=== PATIENT | female | born 1985 | race Caucasian/White ===

== ENCOUNTER 2016-10-29 19:26 | Emergency (ER) | payer SELFPAY ==
[2016-10-29 20:07] VITALS: BP 130/79
[2016-10-29] MEDS ORDERED: Lidocaine 1% MPF* 2 ML VIAL ONE (20:27)
[2016-10-29] MEDS ORDERED: Ibuprofen TAB* 600 MG PO ONE (20:51)
[2016-10-29] MEDS ORDERED: Sulfamethox/Trimethoprim DS 800/160* TAB PO ONE (20:51)
--- NOTE | 2016-10-29 21:16 | UC ---
Enmanuel Stephenson Erika, scribed for Billy Bagley MD on 10/29/16 at 2033 . Ear Complaint HPI - HPI Summary HPI Summary: Patient is a 31-year-old female presenting to [facility] with a painful abscess to the right ear starting about 3 weeks ago. Patient reports that it started with a pimple on the right ear, which patient squeezed. The next morning it was larger and has been worsening gradually since then. Patient currently rates pain a constant 7/10. Hx MRSA. PSHx stent for kidney stones, ear tubes. FHx CAD , COPD. Patient smokes 1PPD, but does not drink or use illicit drugs. - History of Current Complaint Chief Complaint: UCEar Stated Complaint: EAR PAIN Time Seen by Provider: 10/29/16 20:15 Hx Obtained From: Patient Hx Last Menstrual Period: 10/26/16 Onset/Duration: Gradual Onset, Lasting Weeks, Still Present Severity Initially: Mild Severity Currently: Moderate Pain Intensity: 7 Pain Scale Used: 0-10 Numeric Associated Signs/Symptoms: Positive: Swelling @ - R ear - Allergies/Home Medications Allergies/Adverse Reactions: Allergies Allergy/AdvReac Type Severity Reaction Status Date / Time No Known Allergies Allergy Verified 12/24/15 16:38 PMH/Surg Hx/FS Hx/Imm Hx Endocrine History Of: Denies: Diabetes, Thyroid Disease Cardiovascular History Of: Denies: Cardiac Disorders, Hypertension Respiratory History Of: Denies: COPD, Asthma GI/ History Of: Denies: Ulcer - Surgical History Surgical History: Yes Surgery Procedure, Year, and Place: STENT PLACEMENT FOR PREVIOUS KIDNEY STONE, EAR TUBES A CHILD - Family History Known Family History: Positive: Cardiac Disease, Respiratory Disease - COPD - Social History Alcohol Use: None Substance Use Type: None Smoking Status (MU): Heavy Every Day Tobacco Smoker Type: Cigarettes Amount Used/How Often: 1 ppd Length of Time of Smoking/Using Tobacco: 18 years Have You Smoked in the Last Year: Yes Household Exposure Type: Cigarettes Review of Systems Constitutional: Negative Skin: Negative Eyes: Negative ENT: Other - R ear painful abscess Respiratory: Negative Cardiovascular: Negative Gastrointestinal: Negative Genitourinary: Negative Motor: Negative Neurovascular: Negative Musculoskeletal: Negative Neurological: Negative Psychological: Negative All Other Systems Reviewed And Are Negative: Yes Physical Exam Triage Information Reviewed: Yes Vital Signs: Initial Vital Signs Temp 97.8 F 10/29/16 20:01 Pulse 96 10/29/16 20:01 Resp 18 10/29/16 20:01 BP 130/79 10/29/16 20:01 Pulse Ox 97 10/29/16 20:01 Vital Signs Reviewed: Yes - Additional Comments Vital signs: Reviewed Gen.: Patient is a well-developed and nourished female in no acute distress. Patient is lying comfortably on the stretcher. Head: Normacephalic and atraumatic Eyes: PERRLA, EOMI x2. Ears: Right and Left ear canal and TM WNL. Positive swelling and red and tenderness of the right helix and antihelix Nose and mouth: Neck: Supple, no lymphadenopathy, no JVD Lungs: CTA B/L CVS: S1 & S2 present. No murmurs appreciated. ABDOMEN: Soft, non-tender. No signs of distention. No rebound no guarding, and no masses palpated. Bowel sounds are normal. EXTREMITIES: FROM in all major joints, no edema, no cyanosis or clubbing. NEURO: Alert and oriented x 3. No acute neurological deficits. Speech is normal and follows commands. SKIN: Dry and warm Procedures - Incision and Drainage Site: Right ear at the helix and antihelix Anesthesia: Local, Lidocaine - 1% without epi Instrument(s): Scalpel - 11 blade, producing copious amounts of serous purulent discharge Packing: Other - not able to pack the wound since the swelling decreased significantly Ear Complaint Course/Dx - Course Course Of Treatment: Patient is a 31-year-old female presenting to [facility] with a painful abscess to the right ear starting about 3 weeks ago. Patient reports that it started with a pimple on the right ear, which patient squeezed. The next morning it was larger and has been worsening gradually since then. Patient currently rates pain a constant 7/10. Hx MRSA. PSHx stent for kidney stones, ear tubes. FHx CAD, COPD. Patient smokes 1PPD, but does not drink or use illicit drugs. The patient has significant swelling, redness, and tenderness in the right helix, and antihelix, possibly secondary to an abscess since the pt started with a pimple which she squeezed, and now she is having these symptoms. I discussed the benefits and risks of just treating with Abx versus performing an I&D and she agrees with the I&D. She signed the consent. I did the I&D which expressed serous purulent discharge, copious amounts. After the I&D the pts pain decreased from a 8-9/10 to a 3-4/10, pt is feeling better. I was not able to pack the wound since the swelling decreased significantly. The pt was given Bactrim, cultures were sent to the lab, and she was given ibuprofen for the pain. She was given specific instructions that if she continues to have more pain, fevers, chills, or more swelling, pt shall go immediately to the ED for further assessment. It is imperative that the pt follow these instructions since the vascularization in the right ear is limited. The pt understands and verbalizes understanding. She is hemodynamically stable and A&Ox3. - Differential Dx/Diagnosis Differential Diagnosis/HQI/PQRI: Other - Cellulitis and abscess of right ear. Provider Diagnoses: 1. Right ear abscess and cellulitis Discharge - Discharge Plan Condition: Stable Disposition: HOME Prescriptions: Sulfamethox/Trimethoprim DS* [Bactrim DS 800/160 TAB*] 1 tab PO BID #9 tab Patient Education Materials: Abscess (ED), Cellulitis (ED) Referrals: [facility] [Outside] - 2 Days Additional Instructions: Please follow up with your PCP on . The documentation as recorded by the Enmanuel hernandez Erika accurately reflects the service I personally performed and the decisions made by , Billy Bagley MD.
== END 2016-10-29 21:09 | disposition home or self-care (01) ==
LOC: UCEAST 19:26
DX: H60.01 Abscess of right external ear (principal); H60.11 Cellulitis of right external ear; Z86.14 Personal history of Methicillin resistant Staphylococcus aureus infection; F17.210 Nicotine dependence, cigarettes, uncomplicated
CPT/HCPCS: 10060; 69000; 87070; 87077; 87205; 99212; A9270-GY; G0463

== ENCOUNTER 2023-11-11 13:23 | Inpatient (IN) ==
[2023-11-11] MEDS: Lactated Ringers 1000 ml BAG 1,000 ML IV ONE ×2 (16:00→22:15)
[2023-11-11 16:11] LABS: Hematocrit 29.3 % (35-45); Hemoglobin 9.5 g/dL (11.5-14.3); Mean Corpuscular Hgb Conc 32.5 g/dL (31-36); Mean Corpuscular Volume 67.6 fL (80-97); Platelet Count 259 10^3/uL (150-450); Red Blood Count 4.34 10^6/uL (3.63-4.92); Red Cell Distribution Width 18.4 % (12-17); White Blood Count 13.8 10^3/uL (3.8-11.8)
[2023-11-11 16:17] LABS: Activated Partial Thrombo Time 33.6 seconds (26.0-38.0); INR 1.32 (0.83-1.13)
[2023-11-11 16:33] LABS: High Sens Troponin Baseline 14 pg/mL (<15)
[2023-11-11] MEDS: LACTATED RINGERS IV ONE (16:38)
[2023-11-11 16:39] LABS: ABS Basophils 0.1 10^3/uL (0.0-0.1); ABS Eosinophils 0.1 10^3/uL (0.0-0.5); ABS Lymphocytes 1.6 10^3/uL (1.0-4.8); ABS Monocytes 1.6 10^3/uL (0.0-0.9); ABS Neutrophils 10.4 10^3/uL (1.5-7.6); ABS Nucleated RBC 0.01 10^3/ul; Acanthocytes 1+; Eosinophil % 0.4 %; Lymphocyte % 11.6 %; Microcytosis 1+; Nucleated Red Blood Cells % 0.1 %/100WBC (0.0-0.8)
[2023-11-11 16:41] LABS: ALT 18 U/L (7-52); AST 27 U/L (13-39); Albumin 3.1 g/dL (3.2-5.2); Albumin/Globulin Ratio 0.8 (1-3); Alkaline Phosphatase 78 U/L (35-149); Anion Gap 11 mmol/L (2-16); Blood Urea Nitrogen 17 mg/dL (6-24); C Reactive Protein 352.15 mg/L (<8.01); CO2 Carbon Dioxide 24 mmol/L (22-32); Calcium 8.3 mg/dL (8.6-10.3); Chloride 95 mmol/L (101-111); Creatinine, Serum 0.91 mg/dL (0.51-0.95); Globulin 3.8 g/dL (2-4); Glucose 105 mg/dL (70-100); Potassium 3.8 mmol/L (3.5-5.0); Sodium 130 mmol/L (135-145); Total Bilirubin 0.4 mg/dL (0.2-1.0); Total Protein 6.9 g/dL (6.4-8.9); eGFR CKD-EPI 82.8 (>60)
[2023-11-11 16:47] LABS: HCG Pregnancy < 0.60 mIU/mL
[2023-11-11 16:48] LABS: Urine Appearance Turbid; Urine Bilirubin Negative (Negative); Urine Blood 1+ (Negative); Urine Color Yellow; Urine Glucose Negative (Negative); Urine Ketones Negative (Negative); Urine Nitrite Negative (Negative); Urine Protein 1+ (>=30 mg/dL) (Negative); Urine Specific Gravity 1.019 (1.002-1.030); Urine Urobilinogen Negative (Negative); Urine pH 6.5 (5.0-8.0)
[2023-11-11 16:53] LABS: Urine Bacteria 2+ /HPF (Absent); Urine Red Blood Cell 1+(3-5/hpf) /HPF (0-Trace); Urine Squamous Epithelial Cell Present /HPF (Absent); Urine White Blood Cell 3+(>20/hpf) /HPF (0-Trace)
[2023-11-11] MEDS: Iodixanol (CONTRAST) 320 MG/ML 100 ML SDV IV ONE (17:50)
[2023-11-11 18:07] LABS: High Sensitivity Troponin 1 Hr 12 pg/mL (<15)
[2023-11-11] MEDS: Piperacillin/Tazobac 3.375 BAG 3.375 GM/100 ML BAG IV ONE (19:31)
[2023-11-11 21:11] LABS: Urine Appearance Clear; Urine Bacteria 1+ /HPF (Absent); Urine Bilirubin Negative (Negative); Urine Blood 1+ (Negative); Urine Color Light-Yellow; Urine Glucose Negative (Negative); Urine Ketones Negative (Negative); Urine Nitrite Negative (Negative); Urine Protein 1+ (>=30 mg/dL) (Negative); Urine Red Blood Cell 3+(>10/hpf) /HPF (0-Trace); Urine Specific Gravity >1.050 (1.002-1.030); Urine Squamous Epithelial Cell Present /HPF (Absent); Urine Urobilinogen Negative (Negative); Urine White Blood Cell 3+(>20/hpf) /HPF (0-Trace); Urine pH 6.5 (5.0-8.0)
[2023-11-11] MEDS ORDERED: Zosyn per Pharmacy NOTE FOLLOW UP SCH (22:00)
[2023-11-11] MEDS: Gentamicin ADULT 160 MG in NS 0.9% 100 ml BAG 100 ML IVPB ONE (22:43)
[2023-11-11] MEDS: Senna TAB 8.6 mg TAB PO SCH (23:30)
[2023-11-11] MEDS: Polyethylene Glycol 3350 17 GM PACKET PO SCH (23:31)
[2023-11-11] MEDS: ZOSYN 3.375 GM Q8H per EXTENDED INFUSION IV SCH (23:48)
[2023-11-12 06:32] LABS: Hematocrit 30.6 % (35-45); Hemoglobin 9.7 g/dL (11.5-14.3); Mean Corpuscular Hemoglobin 21.8 pg (27-33); Mean Corpuscular Hgb Conc 31.6 g/dL (31-36); Mean Corpuscular Volume 68.9 fL (80-97); Mean Platelet Volume 10.2 fL (7.5-11.2); Platelet Count 264 10^3/uL (150-450); Red Blood Count 4.45 10^6/uL (3.63-4.92); Red Cell Distribution Width 18.8 % (12-17); White Blood Count 13.6 10^3/uL (3.8-11.8)
[2023-11-12 07:22] LABS: Anion Gap 9 mmol/L (2-16); Blood Urea Nitrogen 16 mg/dL (6-24); CO2 Carbon Dioxide 26 mmol/L (22-32); Calcium 8.2 mg/dL (8.6-10.3); Chloride 98 mmol/L (101-111); Creatinine, Serum 0.96 mg/dL (0.51-0.95); Glucose 96 mg/dL (70-100); Potassium 4.1 mmol/L (3.5-5.0); Sodium 133 mmol/L (135-145); eGFR CKD-EPI 77.7 (>60)
[2023-11-12 07:55] LABS: % Iron Saturation 6 % (15-55); .Transferrin 222 mg/dL (203-362); Iron < 20 ug/dL (50-212); Total Iron Binding Capacity 311 mcg/dL (250-450); Unsaturated Iron Binding 291 ug/dL
[2023-11-12 07:55] LABS: INR 1.29 (0.83-1.13)
[2023-11-12 08:19] LABS: Ferritin 111.1 ng/mL (11-307)
[2023-11-12] MEDS: cefTRIAXone 2 gm/50 mL D5W 2 GM/50 ML BAG IV SCH (14:13)
[2023-11-12] MEDS: fentaNYL 100 mcg/2 ml 50 MCG/ML VIAL ONE (17:43)
[2023-11-13 07:09] LABS: ABS Basophils 0.1 10^3/uL (0.0-0.1); ABS Eosinophils 0.1 10^3/uL (0.0-0.5); ABS Lymphocytes 2.2 10^3/uL (1.0-4.8); ABS Monocytes 1.6 10^3/uL (0.0-0.9); ABS Neutrophils 8.1 10^3/uL (1.5-7.6); ABS Nucleated RBC 0.01 10^3/ul; Eosinophil % 1.2 %; Hematocrit 26.9 % (35-45); Hemoglobin 8.5 g/dL (11.5-14.3); Lymphocyte % 17.9 %; Mean Corpuscular Hemoglobin 21.6 pg (27-33); Mean Corpuscular Hgb Conc 31.7 g/dL (31-36); Mean Corpuscular Volume 68.4 fL (80-97); Mean Platelet Volume 10.6 fL (7.5-11.2); Platelet Count 272 10^3/uL (150-450); Red Blood Count 3.93 10^6/uL (3.63-4.92); Red Cell Distribution Width 18.5 % (12-17); White Blood Count 12.2 10^3/uL (3.8-11.8)
[2023-11-13 07:17] LABS: Creatinine, Serum 0.77 mg/dL (0.51-0.95); Magnesium 1.9 mg/dL (1.9-2.7); Phosphorus 3.5 mg/dL (2.5-5.0); Potassium 3.7 mmol/L (3.5-5.0); eGFR CKD-EPI 101.2 (>60)
[2023-11-13 14:36] VITALS: BP 132/84
== END 2023-11-13 14:38 | disposition home or self-care (01) | DRG 710 ==
LOC: ED 13:23 → EDHOLD 13:23 → SUATTDRO 20:53 → EDHOLD 11-12 06:14 → MEDTELE 11-12 17:34
PROVIDERS: ADMIT Internal Medicine; ATTEND Student in an Organized Health Care Education/Training Program